=== PATIENT | male | born 1950 ===

== ENCOUNTER 2025-01-11 09:08 | Day surgery (SDC) | payer MEDICARE ==
[~2025-01-11] VITALS: Ht 180.3 cm; Wt 89.5 kg
[2025-01-11] MEDS ORDERED: AMLO5 (09:21)
[2025-01-11] MEDS ORDERED: LISI20 (09:24)
[2025-01-11] MEDS ORDERED: ATORVASTATIN CA40 M1 (09:24)
[2025-01-11 11:05] VITALS: BP 104/47
== END 2025-01-11 11:07 | disposition home or self-care (01) ==
LOC: ORSCSDS 09:08
PROVIDERS: Specialist
PROC: 0DBL8ZX Excision of Transverse Colon, Via Natural or Artificial Opening Endoscopic, Diagnostic (ICD-10-PCS; principal; 2025-01-11 10:15)
PROC: 0DBH8ZX Excision of Cecum, Via Natural or Artificial Opening Endoscopic, Diagnostic (ICD-10-PCS; principal; 2025-01-11 10:15)
PROC: 0DBK8ZX Excision of Ascending Colon, Via Natural or Artificial Opening Endoscopic, Diagnostic (ICD-10-PCS; principal; 2025-01-11 10:15)
DX: Z12.11 Encounter for screening for malignant neoplasm of colon (principal); D12.0 Benign neoplasm of cecum; D12.2 Benign neoplasm of ascending colon; D12.3 Benign neoplasm of transverse colon; K64.8 Other hemorrhoids; K57.30 Diverticulosis of large intestine without perforation or abscess without bleeding; Z86.0100 Personal history of colon polyps, unspecified; I10 Essential (primary) hypertension; E78.5 Hyperlipidemia, unspecified; Z79.899 Other long term (current) drug therapy
CPT/HCPCS: 88305; J2704; J7120